=== PATIENT | female | born 1950 ===

== ENCOUNTER 2017-12-04 00:32 | Outpatient (CLI) | payer MEDICARE, OTHER | END 2017-12-04 23:59 | disposition home or self-care (01) | LOC: DIABETIC 00:32 | PROVIDERS: ATTEND Specialist | DX: E11.69 Type 2 diabetes mellitus with other specified complication (principal) | CPT/HCPCS: G0108 ==

== ENCOUNTER 2018-03-13 01:58 | Outpatient (CLI) | payer MEDICARE, OTHER | END 2018-03-13 23:59 | disposition home or self-care (01) | LOC: DIABETIC 01:58 | PROVIDERS: ATTEND Specialist | DX: E11.65 Type 2 diabetes mellitus with hyperglycemia (principal); Z79.899 Other long term (current) drug therapy; Z79.82 Long term (current) use of aspirin | CPT/HCPCS: G0108 ==

== ENCOUNTER 2018-06-04 11:35 | Outpatient (CLI) | payer MEDICARE, OTHER | END 2018-06-04 23:59 | disposition home or self-care (01) | LOC: DIABETIC 11:35 | PROVIDERS: ATTEND Specialist | DX: E11.65 Type 2 diabetes mellitus with hyperglycemia (principal); Z79.82 Long term (current) use of aspirin; Z79.899 Other long term (current) drug therapy | CPT/HCPCS: G0108 ==

== ENCOUNTER 2018-08-06 01:19 | Outpatient (CLI) | payer MEDICARE, OTHER | END 2018-08-06 23:59 | disposition home or self-care (01) | LOC: DIABETIC 01:19 | PROVIDERS: ATTEND Specialist | DX: E11.65 Type 2 diabetes mellitus with hyperglycemia (principal); Z79.82 Long term (current) use of aspirin; Z79.899 Other long term (current) drug therapy | CPT/HCPCS: G0108 ==

== ENCOUNTER 2018-11-05 05:03 | Outpatient (CLI) | payer MEDICARE, OTHER | END 2018-11-05 23:59 | disposition home or self-care (01) | LOC: DIABETIC 05:03 | PROVIDERS: ATTEND Specialist | DX: E11.65 Type 2 diabetes mellitus with hyperglycemia (principal); Z79.899 Other long term (current) drug therapy; Z79.82 Long term (current) use of aspirin | CPT/HCPCS: G0108 ==

== ENCOUNTER 2019-02-04 08:00 | Outpatient (CLI) | payer MEDICARE, OTHER | END 2019-02-04 23:59 | disposition home or self-care (01) | LOC: DIABETIC 08:00 | PROVIDERS: ATTEND Specialist | DX: E11.65 Type 2 diabetes mellitus with hyperglycemia (principal); Z79.899 Other long term (current) drug therapy | CPT/HCPCS: G0108 ==

== ENCOUNTER 2019-05-27 03:47 | Outpatient (CLI) | payer MEDICARE, OTHER | END 2019-05-27 23:59 | disposition home or self-care (01) | LOC: DIABETIC 03:47 | PROVIDERS: ATTEND Specialist | DX: E11.65 Type 2 diabetes mellitus with hyperglycemia (principal); Z79.82 Long term (current) use of aspirin; Z79.899 Other long term (current) drug therapy | CPT/HCPCS: G0108 ==